=== PATIENT | female | born 1970 | race Caucasian/White ===

== ENCOUNTER 2019-09-21 07:28 | Day surgery (SDC) | payer BC ==
[2019-09-15 12:52] VITALS: BMI 23.2
[2019-09-21 07:53] VITALS: TEMP 98
[2019-09-21] MEDS ORDERED: PROPOFOL 20 ML ONE ×4 (07:56)
[2019-09-21] MEDS ORDERED: LIDOCAINE HCL/PF 2% SDV 5ML VIAL ONE (07:56)
[2019-09-21 09:16] VITALS: BP 110/65; PULSE 70
[2019-09-21] MEDS ORDERED: ATROPINE SULFATE 1 MG/10 ML DISP.SYRIN ONE (11:16)
== END 2019-09-21 09:20 | disposition home or self-care (01) ==
LOC: FASU-ENDO 07:28
PROVIDERS: ATTEND Internal Medicine Gastroenterology
PROC: 0DJD8ZZ Inspection of Lower Intestinal Tract, Via Natural or Artificial Opening Endoscopic (ICD-10-PCS; principal; 2019-09-21 08:23)
DX: Z86.010 Personal history of colon polyps (principal)
CPT/HCPCS: 84703

== ENCOUNTER 2023-10-06 09:00 | Emergency (ER) | payer BC ==
[2023-10-06] MEDS ORDERED: LIDOCAINE 5% TOPICAL PATCH TP ONE (09:04)
[2023-10-06 09:07] VITALS: BP 133/89; PULSE 47; RESP 18; TEMP 97.6; BMI 23.6
[2023-10-06] MEDS ORDERED: LIDOCAINE 5% TOPICAL PATCH ONE (09:08)
[2023-10-06] MEDS ORDERED: LIDOCAINE PATCH REMOVAL MC ONE (22:00)
== END 2023-10-06 10:18 | disposition home or self-care (01) ==
LOC: FER 09:00
DX: S30.0XXA Contusion of lower back and pelvis, initial encounter (principal); W21.89XA Striking against or struck by other sports equipment, initial encounter; Y93.A1 Activity, exercise machines primarily for cardiorespiratory conditioning
CPT/HCPCS: 72170-TC-FY; 72220-TC-FY; 99283-25

== ENCOUNTER 2023-11-16 13:19 | Emergency (ER) | payer BC ==
[2023-11-16 13:32] VITALS: BP 107/71; PULSE 74; RESP 13; TEMP 98.5; BMI 23.6
== END 2023-11-16 16:19 | disposition home or self-care (01) ==
LOC: FER 13:19
DX: M25.562 Pain in left knee (principal)
CPT/HCPCS: 73562-TC-LT-FY; 99283-25